=== PATIENT | male | born 1950 | race Caucasian/White ===

== ENCOUNTER 2025-01-06 11:57 | Day surgery (SDC) | payer OTHER ==
[~2025-01-06 11:57] MED LIST: Lidocaine 1% 4 ML ONE; Ondansetron 4 MG/2 ML SDV ONE; Propofol 200 MG/20 ML SDV ONE; fentaNYL 100 MCG/2 ML SDV ONE
[2025-01-06] MEDS: Albuterol 0.083% 2.5 MG/3 ML Neb Soln NEB SCH (12:51)
[2025-01-06] MEDS ORDERED: ceFAZolin 2 GM Vial ONE (12:56)
[2025-01-06] MEDS: Pantoprazole 40 MG Tab.CR PO SCH (13:01)
[2025-01-06] MEDS: Acetaminophen 325 MG Tab PO SCH (13:01)
[2025-01-06] MEDS: Lactated Ringers 1,000 ML IV SCH (13:30)
[2025-01-06] MEDS ORDERED: Lactated Ringers 1,000 ML ONE (13:44)
[2025-01-06] MEDS ORDERED: Lidocaine 1% with EPINEPHrine 1:100,000 20 ML MDV ONE (14:08)
[2025-01-06] MEDS: Bupivacaine 0.5% 30 ML SDV ONE (14:20)
[2025-01-06] MEDS: EPINEPHrine 1 MG/ML SDV ONE (14:20)
[2025-01-06] MEDS: Lidocaine 1% with EPINEPHrine 1:100,000 20 ML MDV ONE (14:20)
== END 2025-01-06 16:40 | disposition home or self-care (01) ==
LOC: JD.SDS 11:57
PROVIDERS: ATTEND Surgery
DX: K40.90 Unilateral inguinal hernia, without obstruction or gangrene, not specified as recurrent (principal); I13.0 Hypertensive heart and chronic kidney disease with heart failure and stage 1 through stage 4 chronic kidney disease, or unspecified chronic kidney disease; I50.42 Chronic combined systolic (congestive) and diastolic (congestive) heart failure; N18.30 Chronic kidney disease, stage 3 unspecified; E78.5 Hyperlipidemia, unspecified; F17.210 Nicotine dependence, cigarettes, uncomplicated; Z79.82 Long term (current) use of aspirin; Z79.899 Other long term (current) drug therapy
CPT/HCPCS: 49505; A9270; J0171; J0665; J0690; J2405; J2704; J3010; J7120; 00860; 99100; J7620-GY